=== PATIENT | female | born 1975 | race Hispanic/Latino ===

== ENCOUNTER 2016-07-08 07:54 | Emergency (ER) | payer MEDICAID ==
[2016-07-08 08:06] VITALS: BP 118/99; PULSE 91; RESP 18; TEMP 98.4; O2SAT 98
--- NOTE | 2016-07-08 08:26 | ED PDOC ---
HPI: Psych/Substance Abuse Time Seen by Provider: 07/08/16 07:59 Chief Complaint (Nursing): Anxiety Chief Complaint (Provider): Anxiety History Per: Patient History/Exam Limitations: no limitations Onset/Duration Of Symptoms: Days Current Symptoms Are (Timing): Still Present Suicide/Self Injury Attempted (Context): None Modifying Factor(s): None Severity: Moderate Associated Symptoms: Anxiety Involuntary Hold By: None Additional Complaint(s): Patient is a 40 year old female who presents to ED for evaluation of increased anxiety due to home stress life. Patient denies history of depression. Denies any SI or HI. Patient denies nausea, vomiting, chest pain or palpations. Past Medical History Reviewed: Historical Data, Nursing Documentation, Vital Signs Vital Signs: Last Vital Signs Temp 98.4 F 07/08/16 08:05 Pulse 91 H 07/08/16 08:05 Resp 18 07/08/16 08:05 BP 118/99 H 07/08/16 08:05 Pulse Ox 98 07/08/16 08:05 - Medical History PMH: Anxiety Denies: Diabetes, Hepatitis, HIV, HTN, Seizures, Sexually Transmitted Disease - Surgical History Surgical History: No Surg Hx - Family History Family History: States: Unknown Family Hx - Living Arrangements Living Arrangements: With Family - Social History Alcohol: None Drugs: Denies - Immunization History Hx Tetanus Toxoid Vaccination: Yes Hx Influenza Vaccination: No Hx Pneumococcal Vaccination: No - Home Medications Home Medications: Ambulatory Orders Medication Instructions Recorded Acetaminophen/Oxycodone Hydr 02/15/13 [Percocet 10/325 mg Tab] Fluocinolone 0.01% Cream [Lidex] 0.01 cre TP BID #1 tube 02/15/13 Motrin 02/15/13 Naproxen [Naprosyn] 500 mg PO Q12H PRN #14 tab 07/23/14 Azithromycin [Zithromax Z-Lex] 250 mg PO DAILY #6 tab 12/28/14 Codeine Phosphate/Promethazi 5 ml PO Q12 PRN #100 ml 12/28/14 [Phenergan W/Codeine 10 mg/5 ml-6.25 mg/5 ml 1] Prednisone 2 tab PO DAILY #10 tab 12/28/14 Pseudoephedrine [Sudafed Tab] 1 tab PO Q6 PRN #24 tab 12/28/14 - Allergies Allergies/Adverse Reactions: Allergies Allergy/AdvReac Type Severity Reaction Status Date / Time No Known Allergies Allergy Verified 07/08/16 08:12 Review of Systems ROS Statement: Except As Marked, All Systems Reviewed And Found Negative Constitutional: Negative for: Weakness Cardiovascular: Negative for: Chest Pain, Palpitations Respiratory: Negative for: Shortness of Breath Gastrointestinal: Negative for: Nausea Neurological: Negative for: Weakness Psych: Positive for: Anxiety. Negative for: Depression, Suicidal ideation Physical Exam - Reviewed Nursing Documentation Reviewed: Yes Vital Signs Reviewed: Yes - Physical Exam Appears: Positive for: Non-toxic, No Acute Distress Skin: Positive for: Normal Color, Warm Eye Exam: Positive for: Normal appearance ENT: Positive for: Normal ENT Inspection Neck: Positive for: Normal, Painless ROM Cardiovascular/Chest: Positive for: Regular Rate, Rhythm. Negative for: Murmur Respiratory: Positive for: Normal Breath Sounds. Negative for: Respiratory Distress Back: Positive for: Normal Inspection. Negative for: L CVA Tenderness, R CVA Tenderness Extremity: Positive for: Normal ROM. Negative for: Tenderness, Pedal Edema Neurologic/Psych: Positive for: Alert, Oriented. Negative for: Motor/Sensory Deficits - ECG O2 Sat by Pulse Oximetry: 98 (RA) Pulse Ox Interpretation: Normal - Progress ED Course And Treament: 1054: Stable. Crisis saw pt. Does not meet criteria for admit. FU pcp. AAOx3. Pain free. Not suicidal or homicidal. Medical Decision Making Medical Decision Making: Time: 814 Initial impression: Anxiety Initial plan: -- Crisis eval Scribe Attestation: Documented by Renu Saravia acting as a scribe for Kali Couch MD MD Scribe Attestation: All medical record entries made by the Scribe were at my direction and personally dictated by me. I have reviewed the chart and agree that the record accurately reflects my personal performance of the history, physical exam, medical decision making, and the department course for this patient. I have also personally directed, reviewed, and agree with the discharge instructions and disposition. Disposition - Clinical Impression Clinical Impression: Anxiety disorder - Patient ED Disposition Is Patient to be Admitted: No Counseled Patient/Family Regarding: Diagnosis, Need For Followup - Disposition Referrals: [facility] [Outside] - 07/11/16 Disposition: Routine/Home Disposition Time: 10:55 Condition: STABLE Additional Instructions: Return if not better in 3 days. Instructions: Anxiety (ED)
== END 2016-07-08 11:31 | disposition home or self-care (01) ==
LOC: H.ER 07:54
DX: F41.9 Anxiety disorder, unspecified (principal)